=== PATIENT | male | born 2000 | race Caucasian/White ===

== ENCOUNTER 2021-08-26 20:08 | Emergency (ER) | payer OTHER ==
[~2021-08-26] VITALS: Ht 182.9 cm; Wt 127.0 kg
[2021-08-26 20:08] VITALS: BP 155/95
--- NOTE | 2021-08-26 20:08 | NUR ---
TO LOBBY AMBULATORY, BROUGHT IN BY AMBULANCE WITH C/O GENERALIZED ABD PAIN, N/V, S/P EATING SPICY NUTS
[2021-08-26] MEDS ORDERED: DICYCLOMINE HCL LIQUID 20 MG, ALUMINUM HYD/MAG/SIMETHICONE 30 ML, LIDOCAINE VISCOUS 2% ... PO ONE ×3 (20:30)
[2021-08-26] MEDS ORDERED: ALUMINUM HYD/MAG/SIMETHICONE 30 ML UDC ONE (20:33)
[2021-08-26] MEDS ORDERED: DICYCLOMINE HCL LIQUID 10 MG/5 ML UDC ONE (20:34)
--- NOTE | 2021-08-26 22:16 | NUR ---
ERMD at bedside for examination of patient
--- NOTE | 2021-08-26 22:22 | NUR ---
RN medicated per ERMRusty orders. no other nursing interventions needed for patient. Seen by DAT Salas
[2021-08-26 22:25] VITALS: BP 155/95
--- NOTE | 2021-08-26 22:25 | NUR ---
Patient discharged with v/s stable. Written and verbal after care instructions given and explained. Patient verbalized understanding. Ambulatory with steady gait. ID band removed. All questions addressed prior to discharge. Advised to follow up with PMD.
== END 2021-08-26 22:25 | disposition home or self-care (01) ==
LOC: MED 20:08
DX: R10.84 Generalized abdominal pain (principal)
CPT/HCPCS: 99283